=== PATIENT | male | born 1970 | race Caucasian/White ===

== ENCOUNTER 2017-01-24 12:53 | Emergency (ER) | payer MEDICAID ==
[~2017-01-24] VITALS: Ht 185.4 cm; Wt 150.0 kg
[2017-01-24 12:55] VITALS: BP 129/87
[2017-01-24] MEDS ORDERED: KETOROLAC 30 MG/1 ML IM ONE (14:00)
[2017-01-24] MEDS ORDERED: METHOCARBAMOL 750 MG TABLET PO ONE (14:00)
== END 2017-01-24 15:06 | disposition home or self-care (01) ==
LOC: ED 15:00
DX: S39.012A Strain of muscle, fascia and tendon of lower back, initial encounter (principal); M47.896 Other spondylosis, lumbar region; F14.10 Cocaine abuse, uncomplicated; F15.10 Other stimulant abuse, uncomplicated; F17.210 Nicotine dependence, cigarettes, uncomplicated; X58.XXXA Exposure to other specified factors, initial encounter; Y93.89 Activity, other specified; Y92.89 Other specified places as the place of occurrence of the external cause; Y99.8 Other external cause status
CPT/HCPCS: 72110; 96372; 99284; J1885; J7512